=== PATIENT | male | born 1945 | race Caucasian/White ===

== ENCOUNTER 2016-04-14 10:20 | Inpatient (IN) | payer MEDICARE, BC ==
[~2016-04-14] VITALS: Ht 182.9 cm; Wt 84.1 kg
[~2016-04-14 10:20] MED LIST: ALLEGRA180 MG PO; ASPIR-LOW81 MG PO; CENTRUM SILVER1 TA1 PO; FLONASE NASAL S16 GM NS; GLUCOSAMINE/CHONDROI PO; L-LYSINE PO; METAMUCIL1 PDR PO; MVI PO; TRAMADOL50 MG PO; TYLENOL 325MG325 MG PO
[2016-06-14] MEDS ORDERED: ULTRAM 50MG TAB50 MG PO (12:28)
[2016-06-14] MEDS ORDERED: PRINZIDE 25 MG-1 TAB PO (12:28)
[2016-06-14] MEDS ORDERED: ASPI325T6 PO (12:29)
[2016-06-14] MEDS ORDERED: VIAGRA 25MG TAB25 MG PO (12:30)
[2016-06-14] MEDS ORDERED: NORVASC2.5 MG PO (12:30)
[2016-06-14] MEDS ORDERED: ZOCOR 20MG20 MG PO (12:30)
[2016-06-14] MEDS ORDERED: ZYRTEC 10MG10 MG PO (12:32)
[2016-06-21] VITALS (12 sets, daily range): BP systolic 17–131; BP diastolic 48–84; PULSE 44–58; TEMP 96.8–98.8
[2016-06-21] MEDS ORDERED: FOLIC ACID 40400 MCG PO (06:05)
[2016-06-21] MEDS ORDERED: FERROUS SU325 MG/TAB PO (06:05)
[2016-06-21] MEDS ORDERED: VITAMIN C500 MG PO (06:05)
[2016-06-21] MEDS ORDERED: CENTRUM SILVER1 TAB PO (06:07)
[2016-06-21] MEDS ORDERED: METAMUCIL3.4 GM/DOS PO (06:07)
[2016-06-21] MEDS ORDERED: GLUCOSAMINE & C1 CA2 PO (06:08)
[2016-06-21] MEDS ORDERED: MULTIPLE VITAMI1 TA1 PO (06:08)
[2016-06-22 03:52] VITALS: BP 94/47; PULSE 47; TEMP 98.2
[2016-06-22 07:14] LABS: HEMOGLOBIN 12.4 g/dl (13.5-18.0)
[2016-06-22 07:15] LABS: HEMATOCRIT 35.5 % (42.0-52.0)
[2016-06-22 08:07] VITALS: BP 115/60; PULSE 49; TEMP 97.5
[2016-06-22 11:50] VITALS: BP 127/56; PULSE 46; TEMP 98.4
[2016-06-22 15:31] VITALS: BP 108/54; PULSE 46; TEMP 98.5
[2016-06-22 20:05] VITALS: BP 117/56; PULSE 70; TEMP 97.9
[2016-06-23] VITALS (7 sets, daily range): BP systolic 126–158; BP diastolic 45–74; PULSE 55–82; TEMP 97.5–98.3
[2016-06-23 06:26] LABS: HEMOGLOBIN 12.2 g/dl (13.5-18.0)
[2016-06-23 06:29] LABS: HEMATOCRIT 35.7 % (42.0-52.0)
[2016-06-24 04:26] VITALS: BP 132/72; PULSE 62; TEMP 98.8
[2016-06-24] MEDS ORDERED: NORCO 325 MG-7.1 TAB PO (07:14)
[2016-06-24] MEDS ORDERED: ROXICODONE 55 MG/TAB PO (07:15)
[2016-06-24] MEDS ORDERED: COLACE 100100 MG/CAP PO (07:16)
[2016-06-24 07:28] VITALS: BP 124/61; PULSE 70; TEMP 98.3
[2016-06-24 11:29] VITALS: BP 121/58; PULSE 84; TEMP 98
== END 2016-06-24 14:15 | disposition home or self-care (01) | DRG 470 ==
LOC: JCC 06-21 05:17
PROVIDERS: Orthopaedic Surgery
PROC: 0SRC0J9 Replacement of Right Knee Joint with Synthetic Substitute, Cemented, Open Approach (ICD-10-PCS; principal; 2016-06-21 07:30)
DX: M17.11 Unilateral primary osteoarthritis, right knee (principal)
CPT/HCPCS: A4315; A9284; C1713; C1776; J0690; J1100; J2250; J2405; J2704; J3010; J7120

== ENCOUNTER → 2016-06-28 | Outpatient (CLI) | payer MEDICARE, BC ==
[~2016-06-28] MED LIST changes: +ASPI325T6 PO; +CENTRUM SILVER1 TAB PO; +COLACE 100100 MG/CAP PO; +FERROUS SU325 MG/TAB PO; +FOLIC ACID 40400 MCG PO; +GLUCOSAMINE & C1 CA2 PO; +METAMUCIL3.4 GM/DOS PO; +MULTIPLE VITAMI1 TA1 PO; +NORCO 325 MG-7.1 TAB PO; +NORVASC2.5 MG PO; +PRINZIDE 25 MG-1 TAB PO; +ROXICODONE 55 MG/TAB PO; +ULTRAM 50MG TAB50 MG PO; +VIAGRA 25MG TAB25 MG PO; +VITAMIN C500 MG PO; +ZOCOR 20MG20 MG PO; +ZYRTEC 10MG10 MG PO
== END ==
LOC: COL.VAS 12:30
DX: M79.604 Pain in right leg (principal); M79.89 Other specified soft tissue disorders

== ENCOUNTER 2019-07-13 22:48 | Inpatient (IN) | payer MEDICARE, BC ==
[~2019-07-13] VITALS: Ht 182.9 cm; Wt 97.0 kg
[2019-07-14 00:04] LABS: BASO % 0.2 % (0.0-2.0); EOS % 0.1 % (0-4.0); GRAN # 10.1 (1.4-6.5); GRAN % 84.7 % (42.2-75.2); HEMATOCRIT 44.2 % (42.0-52.0); LYMPH # 0.9 (1.2-3.4); LYMPH % 7.4 % (20.0-51.0); MEAN CELL VOLUME 92 fl (80.0-100.0); MEAN CORPUSCULAR HEMOGLOBIN 31 pg (27.0-31.0); MEAN CORPUSCULAR HGB CONC 34 g/dl (33.0-37.0); MEAN PLATELET VOLUME 9.5 fl (7.4-10.4); MONO # 0.9 (0.1-0.6); MONO % 7.3 % (1.7-9.3); PLATELET COUNT 194 K/mm3 (130-400); RED BLOOD COUNT 4.83 M/mm3 (4.20-5.60); REDCELL DISTRIBUTION WIDTH-CV 12.4 % (11.5-14.5)
[2019-07-14 00:13] LABS: ALBUMIN 4.5 gm/dL (3.5-5.0); BILIRUBIN,TOTAL 0.9 mg/dL (0.0-1.0); CALCIUM 9.1 mg/dL (8.4-10.2); CREATININE, serum 0.57 (0.66-1.25); POTASSIUM 3.8 mmol/L (3.4-5.0); TOTAL PROTEIN 7.5 gm/dL (6.4-8.2)
[2019-07-14 00:59] LABS: COLLECTION METHOD CLEAN CATCH
[2019-07-14 02:12] LABS: PH 8 (5-8); SQUAMOUS EPITHELIAL None Seen /hpf; URINE APPEARANCE Hazy; URINE BACTERIA None Seen /hpf; URINE BILIRUBIN Negative (NEGATIVE); URINE BLOOD Negative (NEGATIVE); URINE COLOR Yellow; URINE GLUCOSE Negative (NEGATIVE); URINE KETONE Negative (NEGATIVE); URINE LEUKOCYTE ESTERASE Negative (NEGATIVE); URINE NITRATE Negative (NEGATIVE); URINE PROTEIN(semi-quant) 1+ (NEGATIVE); URINE UROBILINOGEN Negative (NEGATIVE)
[2019-07-14 03:00] VITALS: BP 162/73; PULSE 72; TEMP 97.9
--- NOTE | 2019-07-14 03:00 | NUR ---
To room from ER via wheelchair. Admission Assessment complete. NG to left kristina @ 51cm-low intermittent suction. Dark brown/green output. Attempted to review and verify home meds-states his significant other took home his list-current list in computer is not accurate-has stopped several and started new. Will pass on to next shift so aware. Denies pain/shortness of breath. Denies questions/concerns. Call light in reach. Will monitor.
--- NOTE | 2019-07-14 03:42 | NUR ---
C/O nausea. Phenergan given per dr order.
[2019-07-14 07:27] VITALS: BP 155/70; PULSE 65; TEMP 99.8
[2019-07-14 11:49] VITALS: BP 149/72; PULSE 76; TEMP 97.9
--- NOTE | 2019-07-14 12:00 | NUR ---
Dilauded given once this morning for pain to left shoulder and abdomen. Denies nausea after dilauded given. Patient is having minimal output from his NG tube, drainage is dark brown. Abduction sling to L arm. Dr Garcia has seen patient this am. He ordered to change dressing to left shoulder. Patient has been passing flatus and had one liquid stool. He is voiding without issues. No other changes at this time. Call light within reach.
--- NOTE | 2019-07-14 13:42 | NUR ---
Plan: To return home with Gila [phone] as care support. Patient also listed his as EMR and DPOA. They reside in [facility]. Assess: SW met with patient with his Gila at his bedside. patient gave permission for to be present during interview. patient denied the use of any DM equipment, and reported that his PCP was Dr. Lamar. Patient reported that he did not have any upcoming appointments, and that he got his medications from [facility] pharmacy with no concerns. Patient declined [facility] at this time. Action: SW educated patient about community resources. Sw will continue to follow.
--- NOTE | 2019-07-14 14:45 | NUR ---
Patient took off sling and got cleaned up. Changed dressings to left shoulder from occlusive dressing to bandaids. Patient has a large bruise and left bicep has edema. Area is firm. Notified Dr Garcia, he stated that it is from the surgery. Placed ice pack to area. No other changes at this time.
--- NOTE | 2019-07-14 17:26 | NUR ---
Patient got cleaned up this afternoon. Stated his throat feels better after getting the chloraseptic spray. He had several visitors earlier. No more bowel movements. Patient denies nausea and minimal complaints of pain at this time. Dressings to left shoulder changed. No other changes at this time. Call light within reach.
[2019-07-14 17:37] VITALS: BP 140/65; PULSE 61; TEMP 98.4
[2019-07-14 20:41] VITALS: BP 138/77; PULSE 57; TEMP 98.1
[2019-07-15 00:16] VITALS: BP 149/62; PULSE 58; TEMP 99.7
[2019-07-15 04:05] VITALS: BP 144/79; PULSE 58; TEMP 98.1
--- NOTE | 2019-07-15 06:15 | NUR ---
PT HAS NOT HAD ANY NG OUTPUT SO FAR TONIGHT. PT PASSING GAS. NO c/o NAUSEA OR ABDOMINAL DISCOMFORT. PT'S NG UNHOOKED FOR SEVERAL HOURS. NO DISTENSION OR NAUSEA. REHOOKED TO SUCTION AT 0600.
[2019-07-15 08:24] VITALS: BP 147/65; PULSE 66; TEMP 97.8
[2019-07-15 12:03] VITALS: BP 130/61; PULSE 56; TEMP 97.4
--- NOTE | 2019-07-15 12:30 | NUR ---
Patients NG tube started coming out on it's own. It was ordered to be discontinued anyways. Patient is tolerating diet well. Hopes to go home this afternoon. No other changes at this time. Call light within reach.
--- NOTE | 2019-07-15 15:30 | NUR ---
Patient is discharging home. Denies pain and nausea. He tolerated a low fiber diet. Discharge instructions discussed with patient. No questions verbalized. Student nurse discontinued IV this morning. All belongings packed up and sent with patient. Copies of discharge instructions sent with patient. Patient walked out with this nurse.
== END 2019-07-15 15:30 | disposition home or self-care (01) | DRG 390 ==
LOC: COL.ER 22:48 → SURG 07-14 01:36
PROVIDERS: Emergency Medicine; ADMIT Surgery
DX: K56.600 Partial intestinal obstruction, unspecified as to cause (principal); Z96.651 Presence of right artificial knee joint; I10 Essential (primary) hypertension; E78.5 Hyperlipidemia, unspecified
CPT/HCPCS: A9284; J0780; J1170; J1650; J2405; J2550; J2765; J3010; J7030; J7120; Q9967